=== PATIENT | male | born 1950 | race Caucasian/White ===

== ENCOUNTER 2025-05-11 19:03 | Observation (INO) | payer MEDICARE, SELFPAY ==
--- OUTSIDE RECORDS SUMMARY | 2010-03-30 11:46 | XMS_ITS | Continuity of Care Document ---
Author Organization [facility] Address [address] [address] [place] [address] Phone Care Team Providers Care Radioisotope Technologist Name Role Phone Jimbo Miller MD Unavailable Unavailable Medications Medication Instructions Dosage Effective Dates (start - stop) Status Comments MiralaxBisacodylMagCit Colon Prep 2 tabs bisacodyl each containing 5 mg of bisacodyl 1-8.3 oz bottle Miralax (238 gm) 64 oz Gatorade liquid (NOT red; NOT powdered)Regular Gatorade , Gatorade G2 , Powerade or PoweradeZero are acceptable. 1-10 oz bottle Mag Citrate (NOT red) - Active Advance Directives Directive Yes / No Effective Date File Name No Information Encounters Encounter Description Practice Location Reason(s) For Visit Diagnoses Date Provider Providers Copied on Encounter [facility], [address] [address], [place], [place], [id number], [place] tel:[phone] [facility] No Information 0 Paul Choi. [address] [facility] [address], [facility] [address], [place], [place], [id number] , [place]. tel:[phone] Family History Family Member Type Diagnosis Age At Onset No Information Payers Payer name Insurance type Covered democrat ID Authoriza tion(s) No Information Social History Type Description Quantity Date Captured Comments Sex Male Smoking Status No Information Chief Complaint And Reason For Visit No Information Reason For Referral Reason For Referral No Information History Of Present Illness Encounter Date Complaint History Of Prese nt Illness No Information Functional Status Date Functional Assessmen t No Information Instructions Date Instruction Additional Infor mation No Information Assessments Type Assessment Date No Information Patient Care Teams Name Effective Dates (start - stop) Status Members No Information
--- OUTSIDE RECORDS SUMMARY | 2010-03-30 11:46 | XMS_ITS | Continuity of Care Document ---
Author Organization [facility] Address [address] [address] [place] [address] Phone Care Team Providers Care Energy Conservation Director Name Role Phone Jimbo Miller MD Unavailable [...] Diagnoses Date Provider Providers Copied on Encounter [facility], [address] [address], [place], [place], [id number], [place] tel:[phone] [facility] No Information 0 Paul Choi. [address] [facility], [facility] [address], [place], [place], [id number] , [place]. tel:[phone] Family History Family Member Type Diagnosis Age At Onset No Information Payers Payer name Insurance type Covered republican ID Authoriza tion(s) No Information Social History [...]
--- OUTSIDE RECORDS SUMMARY | 2010-03-30 11:46 | XMS_ITS | Continuity of Care Document ---
Author Organization [facility] Address [address] [address] [place] [address] Phone Care Team Providers Care Orientor Name Role Phone Jimbo Miller MD Unavailable [...] Diagnoses Date Provider Providers Copied on Encounter [facility], [address] [address], [place], [place], [id number], [place] tel:[phone] [facility] No Information 0 Paul Choi. [address], [facility] [address], [place], [place], [id number] , [place]. tel:[phone] Family History Family Member Type Diagnosis Age At Onset No Information Payers Payer name Insurance type Covered constitution party ID Authoriza tion(s) No Information Social History [...]
[2025-05-11] VITALS (7 sets, daily range): BP systolic 175–219; BP diastolic 106–114; PULSE 57–67; RESP 12–22; TEMP 36.6; O2SAT 94–96; BMI 26.3
--- OUTSIDE RECORDS SUMMARY | 2025-05-11 19:07 | XMS_ITS | Clinical Summary ---
Author Organization [employer] [facility] [employer] Address [address] [place] [address] Care Team Providers Care Cured Meats Supervisor Name Role Phone Pcp, No Primary Care Provider Unavailabl e Allergies No known active allergies Medications No known medications Active Problems No known active problems Social History Tobacco Use Types Packs/Day Years Used Date Smoking Tobacco: Former Cigarettes Smokeless Tobacco: Never Tobacco Cessation:Counseling Given: Not Answered Social Connections Answer Date Recorded Frequency of Communication with Friends and Fami ly Not on file 04/12/2023 Sex and Gender Information Value Date Recorded Sex Assigned at Not on file Legal Sex Male 6:26 AM [employer]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 Gender Identity Not on file Sexual Orientation Not on file Obstetrics History Plan of Treatment Health Maintenance Due Date Last Done Comments Tetanus booster 1962 Depression screening for age 12+ 1963 BMI (ht and wt on same day) for age 18+ 1969 Hepatitis C screening for age 18-79 1969 Colonoscopy through age 75 1996 Lipids for age 45-75 1996 Pneumococcal series for age 50+ (1 of 1 - PCV) 2001 Zoster (shingles) series for age 50+ (1 of 2) 2001 Medicare Wellness for age 65+ 2016 COVID-19 vaccine series ( - 2024- season) 2025 06/16/2023, 06/06/2022, 09/21/2021, Additional history exists Influenza Vaccine (#1) 2025 RSV vaccine for adults or (1 - 1-dose 75+ series) 2026 Hepatitis B series for 19+ Aged Out N o longer eligible based on patient's age to complete this topic Insurance [facility] MEDICARE ADVANTAGE MR Care Teams Cured Meats Supervisor Relationship Specialty Start Date End Date Pcp, Breann . PCP - General 04/29/24
--- OUTSIDE RECORDS SUMMARY | 2025-05-11 19:07 | XMS_ITS | Clinical Summary ---
Author Organization [employer] Address [address], [place] [address] Care Team Providers Care Instructional Paraprofessional Name Role Phone Zack Paez MD Primary Care Provider [phone] Source Comments You are receiving this document as you are listed as the primary care provider,follow-up provider, or the patient has been referred to you for consultation.This is in compliance with the Medicare and[facility] EHR Incentive Program,which states Providers who transition their patient to another setting of careor provider of care or refers their patient to another provider of care shouldprovide summary care record for each transition of care or referral. [employer] Allergies No known active allergies Medications fluticasone (FLONASE) 50 MCG/ACT nasal solution Place 2 Sprays into both nostrils daily. decrease to 1 spray per nostril daily if symptoms controlled 16 g 3 8 Active Additional Information Patient not taking.Reported on 01/14/2020 aspirin 81 MG chewable tabletIndication s:Essential hypertension (HRC) Take 1 Tab by mouth daily. 72 Tab 3 8 Active Additional Information Patient not taking.Reported on 01/10/2020 fluorouracil (EFUDEX) 5 % cream Apply a thin layer to affected skin on neck and face twice a day for 1 week. 40 g 0 Active Additional Information Patient not taking.Reported on 01/10/2020 Calcipotriene (AKA DOVONEX) 0.005 % ointment Apply a thin layer to affected skin on neck and face twice a day for 1 week. 60 g 0 Active Additional Information Patient not taking.Reported on 01/10/2020 naproxen (NAPROSYN) 500 MG tabletIndication s:Muscle aches TAKE 1 TABLET BY MOUTH TWICE DAILY WITH MEALS 30 Tablet 0 Active lisinopril (ZESTRIL) 40 MG tabletIndication s:Essential hypertension (HRC) TAKE 1 TABLET BY MOUTH DAILY 90 Tablet 3 0 Active amLODIPine (NORVASC) 5 MG tabletIndication s:Essential hypertension (HRC) TAKE 1 TABLET BY MOUTH DAILY 90 Tablet 3 0 Active Active Problems Problem Noted Date Diagnosed Date White coat syndrome with hypertension 11/06/2017 HTN (hypertension) 03/02/2010 Overweight 03/02/2010 Seborrheic dermatitis 03/02/2010 Immunizations Immunization Administration Dates Next Due HepA-HepB ([place], 18+ yrs) 03/19/2010 IPV (Polio) 03/19/2010 MCV4 (Menactra) 03/19/2010 PCV13 (Prevnar) 10/30/2017 Tdap 03/19/2010 Typhoid (Typhim Vi, IM) 03/19/2010 Varicella 03/19/2010(Deferred: Immune by Nathaniel monroe) YF (Yellow Fever) 03/19/2010 Family History Medical History Relation Name Comments Cancer, Other Father Leukemia age 7 2 Cataract Father Diabetes, Type II Father Hypertension Father Anxiety Mother Coronary Artery Disease Mother Schizophrenia Mother Diabetes, Type II Paternal Grandfather Diabetes, Type II Paternal Grandmother Relation Name Status Comments Father (Age 72) Mother Brother Maternal Grandfather Maternal Grandmother Paternal Grandfather Paternal Grandmother Sister 1 Sister 2 Son Alive Social History Tobacco Use Types Packs/Day Years Used Date Smoking Tobacco: Former Cigarettes 1 6 Smokeless Tobacco: Never Comments:hasn't smokes since age 23 Alcohol Use Standard Drinks/Week Comments No 0 (1 standard drink = 0.6 oz pur e alcohol) PHQ-2 Answer Date Recorded PHQ-2 Score 0 12/29/2018 Sex and Gender Information Value Date Recorded Sex Assigned at Not on file Legal Sex Male 5:53 AM CDT Gender Identity Not on file Sexual Orientation Not on file Occupation Industry Job Start Date Job End Date retired Not on file Not on file Not on file Last Filed Vital Signs Vital Sign Reading Time Taken Comments Blood Pressure 180/107 01/14/2020 8:16 AM CDT Pulse 67 01/14/2020 8:16 AM CDT Temperature 36.3 C (97.4 F) 03/02/2010 1:47 PM CDT Respiratory Rate 12 01/23/2018 2:30 PM CDT Oxygen Saturation 94% 01/23/2018 2:30 PM CDT Inhaled Oxygen Concentration - - Weight 97.5 kg (215 lb) 09/25/2018 10:23 AM METAL FABRICATOR HELPER Height 180 cm (5' 10.87) 09/25/2018 10:23 AM CS T Body Mass Index 30.1 09/25/2018 10:23 AM METAL FABRICATOR HELPER Plan of Treatment Health Maintenance Due Date Last Done Comments Medicare Annual Wellness Visit 1950 Zoster/Shingles Vaccine (1 of 2) 2001 HepA Vaccine (2 of 3 - Hep A Twinrix risk 3-dose series) 04/16/2010 03/19/2010 HepB Vaccine (2) 04/16/2010 03/19/2010 Pneumococcal Vaccine 50+ Yrs (2 of 2 - PCV20 or PCV21) 10/30/2018 10/30/2017 DTaP/Tdap/Td Vaccine (2 - Tdap) 03/19/2020 03/19/2010 Cholesterol 01/12/2025 01/13/2020, 10/05, 10/26/2017, Additional history exists COVID-19 Vaccine (2 - 2024- season) 2025 11/10/2020 Influenza Vaccine (#1) 2025 RSV Vaccine (1 - 1-dose 75+ series) 2026 Colonoscopy 01/24/2028 01/23/2018 IPV (Polio) Vaccine Aged Out 03/19/2010 No longe r eligible based on patient's age to complete this topic MCV4 Vaccine Aged Out 03/19/2010 No longer eligi ble based on patient's age to complete this topic Hep C Screening (Preventive Services) Completed 10/26/2017 Abdominal Aortic Aneurysm (AAA) Screening Discontinued 10/18/2018 Hib Vaccine Aged Out No longer eligi ble based on patient's age to complete this topic Meningococcal B Vaccine Aged Out No l onger eligible based on patient's age to complete this topic Procedures Procedure Name Priority Date/Time Associated Diagnosis Comments LIPID PANEL & DIRECT LDL (IF NEEDED) Routine 01/13/2020 8:59 AM CDT Hyperlipidemia, unspecified hyperlipidemia type US ABD AAA SCREENING Routine 10/18/2018 8:18 AM METAL FABRICATOR HELPER Screening for AAA (abdominal aortic aneurysm) COLONOSCOPY Routine 01/23/2018 1:45 PM CDT Screen for colon cancer HEPATITIS C ANTIBODY, WITH REFLEX (ANTI-HCV) Routine 10/26/2017 8:54 AM METAL FABRICATOR HELPER Need for hepatitis C screening test from Last 3 Months or Most Recently Relevant to Health Maintenance Results * (ABNORMAL) Lipid Panel and Direct LDL(If Needed) (01/13/2020 8:59 AM CDT) Cholesterol 172 0 - 199 mg/dL 01/13/2020 3:22 PM CDT [facility] Triglyceride 71 <=149 mg/dL 01/13/2020 3:22 PM CDT [facility] HDL Cholesterol 39(L) >=40 mg/dL 01/13/2020 3:22 PM CDT [facility] LDL, Calculated 119 <130 mg/dL 01/13/2020 3:22 PM CDT [facility] Non HDL Chol, Calculated 133 mg/dL 01/13/2020 3:22 PM CDT [facility] Cholesterol/HDL Ratio 4.4 01/13/2020 3:22 PM CDT [facility] Hours Fasting 12 01/13/2020 3:22 PM CDT [facility] Blood Venipuncture / Unknown 01/13/2020 8:59 AM CDT 01/13/2020 8:59 AM CDT Zack Paez MD LAB_1 Final Result [facility] [address] [address], [facility] [phone] [facility] [address] [place] [address] [place] [phone] * US Abd AAA Screening (10/18/2018 8:18 AM METAL FABRICATOR HELPER) Anatomical Region Laterality Modality Abdomen Ultrasound 10/18/2018 8:18 AM METAL FABRICATOR HELPER Narrative 10/18/2018 8:21 AM METAL FABRICATOR HELPER [facility] ABD AAA SCREENING 10/18/2018 8:18 AM INDICATION: Abdominal aortic aneurysm screening with a history of smoking. TECHNIQUE: Ultrasound using hair-scale, two-dimensional images. FINDINGS: There is mild atheromatous plaque in the abdominal aorta. MEASUREMENTS: Abdominal Aorta: Proximal: 2.6 x 2.6 cm Mid: 1.9 x 2.1 cm Distal: 1.7 x 1.5 cm Right Common Iliac Artery: 1.2 x 1.0 cm Left Common Iliac Artery: 1.1 x 1.3 cm The right kidney measures 11.8 cm. The left kidney measures 12.0 cm. Superior left renal cyst measuring 3.4 x 2.5 x 2.9 cm. CONCLUSION: 1. Normal caliber abdominal aorta. Procedure Note Johnnie Sexton MD - 10/18/2018 [facility] ABD AAA SCREENING 10/18/2018 8:18 AM INDICATION: Abdominal aortic aneurysm screening with a history ofsmoking. TECHNIQUE: Ultrasound using hair-scale, two-dimensional images. FINDINGS: There is mild atheromatous plaque in the abdominal aorta. MEASUREMENTS: Abdominal Aorta: Proximal: 2.6 x 2.6 cm Mid: 1.9 x 2.1 cm Distal: 1.7 x 1.5 cm Right Common Iliac Artery: 1.2 x 1.0 cm Left Common Iliac Artery: 1.1 x 1.3 cm The right kidney measures 11.8 cm. The left kidney measures 12.0 cm.Superior left renal cyst measuring 3.4 x 2.5 x 2.9 cm. CONCLUSION: 1. Normal caliber abdominal aorta. Zack Paez MD [facility] US Final Result * COLONOSCOPY [[id number]] (01/23/2018 1:45 PM CDT) 01/23/2018 1:45 PM CDT Narrative [facility]) - 01/23/2018 2:12 PM CDT Instrument Name: 185 Indications: Screening for colorectal malignant neoplasm Providers: Jordan Villafana MD, Shiv Neal RN, Julissa Shannon LPN Referring MD: Shakeel Romero Medicines: Midazolam 2 mg IV, Fentanyl 75 micrograms IV, Diphenhydramine 50 mg IV Complications: No immediate complications. Procedure: Pre-Anesthesia Assessment: - Prior to the procedure, a History and Physical was performed, and patient medications and allergies were reviewed. The patient is competent. The risks and benefits of the procedure and the sedation options and risks were discussed with the patient. All questions were answered and informed consent was obtained. Patient identification and proposed procedure were verified by the physician in the pre-procedure area. Mental Status Examination: alert and oriented. Airway Examination: normal oropharyngeal airway and neck mobility. Respiratory Examination: clear to auscultation. CV Examination: normal. Prophylactic Antibiotics: The patient does not require prophylactic antibiotics. Prior Anticoagulants: The patient has taken no previous anticoagulant or antiplatelet agents. ASA Grade Assessment: II - A patient with mild systemic disease. After reviewing the risks and benefits, the patient was deemed in satisfactory condition to undergo the procedure. The anesthesia plan was to use moderate sedation / analgesia (conscious sedation). Immediately prior to administration of medications, the patient was re-assessed for adequacy to receive sedatives. The heart rate, respiratory rate, oxygen saturations, blood pressure, adequacy of pulmonary ventilation, and response to care were monitored throughout the procedure. The physical status of the patient was re-assessed after the procedure. After I obtained informed consent, the scope was passed under direct vision. Prior to sedation, patient identity and procedure was reverified. Throughout the procedure, the patient's blood pressure, pulse, and oxygen saturations were monitored continuously. The PCF-H190L was introduced through the anus and advanced to the cecum, identified by appendiceal orifice and ileocecal valve. The colonoscopy was performed without difficulty. The patient tolerated the procedure well. The quality of the bowel preparation was fair. Findings: The perianal and digital rectal examinations were normal. Multiple small and large-mouthed diverticula were found in the sigmoid colon. The exam was otherwise without abnormality on direct and retroflexion views. Moderate Sedation: Moderate (conscious) sedation was administered by the endoscopy nurse and supervised by the endoscopist. The following parameters were monitored: oxygen saturation, heart rate, blood pressure, and response to care. Total physician intraservice time was 17 minutes. Impression: - Preparation of the colon was fair. - Diverticulosis in the sigmoid colon. - The examination was otherwise normal on direct and retroflexion views. - No specimens collected. Recommendation: - Discharge patient to home. - High fiber diet indefinitely. - Continue present medications. - Repeat colonoscopy in 10 years for screening purposes. - Return to referring physician as previously scheduled. Procedure Code(s): --- Professional --- 28340, Colonoscopy, flexible; diagnostic, including collection of specimen(s) by brushing or washing, when performed (separate procedure) G0500, Moderate sedation services provided by the same physician or other qualified health health care manager performing a gastrointestinal endoscopic service that sedation supports, requiring the presence of an independent trained observer to assist in the monitoring of the patient's level of consciousness and physiological status; initial 15 minutes of intra-service time; patient age 5 years or older (additional time may be reported with 83166, as appropriate) Diagnosis Code(s): --- Professional --- Z12.11, Encounter for screening for malignant neoplasm of colon K57.30, Diverticulosis of large intestine without perforation or abscess without bleeding CPT copyright 2016 [employer]. All rights reserved. The codes documented in this report are preliminary and upon desktop support manager review may be revised to meet current compliance requirements. Attending Participation: Jordan Villafana MD 01/23/2018 2:12:19 PM This report has been signed electronically. Number of Addenda: 0 Note Initiated On: 01/23/2018 1:45 PM Procedure Note Jordan Villafana MD - 01/23/2018 Instrument Name: 185 Indications: Screening for colorectal malignant neoplasm Providers: Jordan Villafana MD, Shiv Neal RN, Julissa Shannon LPN Referring MD: Shakeel Romero Medicines: Midazolam 2 mg IV, Fentanyl 75 micrograms IV, Diphenhydramine 50 mg IV Complications: No immediate complications. Procedure: Pre-Anesthesia Assessment: - Prior to the procedure, a History and Physical was performed, and patient medications and allergies were reviewed. The patient is competent. The risks and benefits of the procedure and the sedation options and risks were discussed with the patient. All questions were answered and informed consent was obtained. Patient identification and proposed procedure were verified by the physician in the pre-procedure area. Mental Status Examination: alert and oriented. Airway Examination: normal oropharyngeal airway and neck mobility. Respiratory Examination: clear to auscultation. CV Examination: normal. Prophylactic Antibiotics: The patient does not require prophylactic antibiotics. Prior Anticoagulants: The patient has taken no previous anticoagulant or antiplatelet agents. ASA Grade Assessment: II - A patient with mild systemic disease. After reviewing the risks and benefits, the patient was deemed in satisfactory condition to undergo the procedure. The anesthesia plan was to use moderate sedation / analgesia (conscious sedation). Immediately prior to administration of medications, the patient was re-assessed for adequacy to receive sedatives. The heart rate, respiratory rate, oxygen saturations, blood pressure, adequacy of pulmonary ventilation, and response to care were monitored throughout the procedure. The physical status of the patient was re-assessed after the procedure. After I obtained informed consent, the scope was passed under direct vision. Prior to sedation, patient identity and procedure was reverified. Throughout the procedure, the patient's blood pressure, pulse, and oxygen saturations were monitored continuously. The PCF-H190L was introduced through the anus and advanced to the cecum, identified by appendiceal orifice and ileocecal valve. The colonoscopy was performed without difficulty. The patient tolerated the procedure well. The quality of the bowel preparation was fair. Findings: The perianal and digital rectal examinations were normal. Multiple small and large-mouthed diverticula were found in the sigmoid colon. The exam was otherwise without abnormality on direct and retroflexion views. Moderate Sedation: Moderate (conscious) sedation was administered by the endoscopy nurse and supervised by the endoscopist. The following parameters were monitored: oxygen saturation, heart rate, blood pressure, and response to care. Total physician intraservice time was 17 minutes. Impression: - Preparation of the colon was fair. - Diverticulosis in the sigmoid colon. - The examination was otherwise normal on direct and retroflexion views. - No specimens collected. Recommendation: - Discharge patient to home. - High fiber diet indefinitely. - Continue present medications. - Repeat colonoscopy in 10 years for screening purposes. - Return to referring physician as previously scheduled. Procedure Code(s): --- Professional --- 69133, Colonoscopy, flexible; diagnostic, including collection of specimen(s) by brushing or washing, when performed (separate procedure) G0500, Moderate sedation services provided by the same physician or other qualified health health care manager performing a gastrointestinal endoscopic service that sedation supports, requiring the presence of an independent trained observer to assist in the monitoring of the patient's level of consciousness and physiological status; initial 15 minutes of intra-service time; patient age 5 years or older (additional time may be reported with 60663, as appropriate) Diagnosis Code(s): --- Professional --- Z12.11, Encounter for screening for malignant neoplasm of colon K57.30, Diverticulosis of large intestine without perforation or abscess without bleeding CPT copyright 2016 [employer]. All rights reserved. The codes documented in this report are preliminary and upon desktop support manager review may be revised to meet current compliance requirements. Attending Participation: Jordan Villafana MD 01/23/2018 2:12:19 PM This report has been signed electronically. Number of Addenda: 0 Note Initiated On: 01/23/2018 1:45 PM us Jordan Villafana MD [facility] Final Result Performing Organization Address [facility] Co de Phone Number [facility]) [place], [place] * Hepatitis C Antibody, with Reflex (10/26/2017 8:54 AM METAL FABRICATOR HELPER) Anti-HCV Negative (Non Reactive) [facility] Comment: Antibodies to HCV not detected. Does not exclude the possibility of exposure to HCV. 10/26/2017 8:54 AM METAL FABRICATOR HELPER 10/26/2017 8:56 AM METAL FABRICATOR HELPER Narrative [facility] - 10/26/2017 3:50 PM METAL FABRICATOR HELPER Performed at [facility], [address] [place] [address] us Shakeel Romero MD LAB_1 Final Resu lt Performing Organization Address [facility] Co de Phone Number [facility] [employer] [phone] from Last 3 Months or Most Recently Relevant to Health Maintenance Insurance [facility] MEDICARE [facility] INSURED DENTAL Care Teams Instructional Paraprofessional Relationship Specialty [place] [address] [place] [address] PCP - General Family Practice 09/19/18
--- OUTSIDE RECORDS SUMMARY | 2025-05-11 19:07 | XMS_ITS | Encounter Summary ---
Author Organization [facility] Address [address], [place] [address] Care Team Providers Care Stone Carver Name Role Phone Zack Paez MD Primary Care Provider [phone] Encounter Details Date Type Department Care Team (Late st Contact Info) Description 01/23/2018 Consent for Procedure/Treatment [facility] Social History Tobacco Use Types Packs/Day Years Used Date Smoking Tobacco: Former Cigarettes 1 6 Smokeless Tobacco: Never Comments:hasn't smokes since age 23 Alcohol Use Standard Drinks/Week Comments No 0 (1 standard drink = 0.6 oz pur e alcohol) Sex and Gender Information Value Date Recorded Sex Assigned at Not on file Legal Sex Male 5:53 AM CDT Gender Identity Not on file Sexual Orientation Not on file Occupation Industry Job Start Date Job End Date retired Not on file Not on file Not on file documented as of this encounter Plan of Treatment Not on file documented as of this encounter Visit Diagnoses Not on filedocumented in this encounter Care Teams Stone Carver Relationship Specialty [place] [address] [place] [address] PCP - General Family Practice 09/19/18 documented as of this encounter
--- OUTSIDE RECORDS SUMMARY | 2025-05-11 19:07 | XMS_ITS | Encounter Summary ---
Author Organization [facility] Address [address], [place] [address] Care Team Providers Care Fish Cutting Machine Operator Name Role Phone Zack Paez MD Primary Care Provider Encounter Details Date Type Department Care Team (Late st Contact Info) Description 01/23/2018 Consent for Procedure/Treatme nt [facility] INFORMED CONSENT RECORD Social History Tobacco Use Types Packs/Day Years [...] on filedocumented in this encounter Care Teams Fish Cutting Machine Operator Relationship Specialty [place] [address] [place] [address] PCP - General Family Practice 09/19/18 documented as of this encounter
--- OUTSIDE RECORDS SUMMARY | 2025-05-11 19:07 | XMS_ITS | Encounter Summary ---
Author Organization [facility] Address [address], [place] [address] Care Team Providers Care Automotive Leasing Sales Representative Name Role Phone Zack Paez MD Primary Care Provider [phone] Encounter Details Date Type Department Care Team (Latest Contact Info) Description 11/05/2019 Consent for Procedure/Treatme [facility] [address] [facility] [address] [facility] [place] [address] Jemma Oakley MD [address] [place] [address] [phone] INFORMED CONSENT FOR SKIN BIOPSY OR EXCISION Social History Tobacco Use Types Packs/Day Years [...] on filedocumented in this encounter Care Teams Automotive Leasing Sales Representative Relationship Specialty [place] [address] [place], [place] [phone] PCP - General Family Practice 09/19/18 documented as of this encounter
--- NOTE | 2025-05-11 21:11 | ED.GENADULT ---
[facility] - General Adult General Date Seen: 05/11/25 Chief complaint: Weakness Stated complaint: high blood pressure, cant walk Time Seen by Provider: 05/11/25 21:10 History of Present Illness [facility] narrative: 75-year-old male. He has a past medical history of hypertension. He has not seen his doctor in his few years and has been working hard to manage his high blood pressure with control of his diet. He says he measures his blood pressure sometimes at home and typically runs in the 150s but sometimes gets his lows the 130s. He is not on any long-term blood pressure medications. He does not have any other long-term health problems. He does have a distant history of a slip and fall that caused a fairly significant intracranial hemorrhage. Is not able to describe the exact hemorrhage but it sounds like it affected his frontal lobe and possibly his corpus callosum. He never had surgery for it. He has does note some recent memory loss which she attributes to his brain injury. He has been healthy and well lately. He works as a builder. He has been vigorously building a house for himself and his this summer. He was pretty active last winter and did a lot of exercise and swimming. He has been in his usual state of health lately. No recent illnesses. No cough. No shortness of breath. No chest pain. No palpitations. No headaches. No neck pain. No numbness or weakness in his arms or legs. Not had trouble walking recently. No back pain. No falls or injuries. does note that the patient had an episode a few months ago where he was talking on the phone with his son and abruptly cut off mid sentence and then could not talk. He apparently went to bed and then when he woke up the morning his speech was back to normal. He does not have any other neurologic symptoms. Late this afternoon around 4:00 p.m., before dinner he suddenly began to feel wobbly and unsteady and imbalance and like both his legs were weak. He said he was barely able to walk. He was able to walk, with his 's assistance to get to the couch. He says both of his legs were wobbly. His arms were not wobbly. He does not really say that they were weak or numb, just that they we were not balancing or moving properly. He was not able to walk. His had to call 2 neighbors to help assist him to get into the car and bring him here. He was still wobbly and did a wheelchair to get into the ER. However since he has been here the wobbliness is not resolved he is back to normal. He is able to get up and walk at the bedside with me. He did not have any headache. No blurry vision. No diplopia. No nausea vomiting. No chest pain. No palpitations. No pain in his back. No pain in his legs. No abdominal pain he. He did not faint. He did measures blood pressure and it is elevated. Blood pressure was 219/106 at triage. This is higher than his normal baseline readings Related Data Home Medications ?Medication ?Instructions ?Recorded ?Confirmed multivitamin (Daily Multi-Vitamin 1 tab PO DAILY 05/11/25 05/11/25 tablet) Allergies Allergy/AdvReac Type Severity Reaction Status Date / Time No Known Drug Allergies Allergy Verified 05/11/25 21:31 [facility] Social History Smoking Status: Former smoker What tobacco products do you use: cigarettes Years smoked: 25 Smoking quit date/years: <= 15 years ago Do you use any of these nicotine containing products: None Second hand tobacco smoke exposure: No How often do you have a drink containing alcohol: never AUDIT-C Alcohol total score: 0 Non-prescribed substance use: denies use service: No Exam Narrative: Exam Narrative: Constitutional: Appears well-developed and well-nourished. Alert. Conversant. Non toxic. HENT: Head: Atraumatic. Nose: Nose normal. Mouth/Throat: Oral mucosa is clear and moist. no trismus. Pharynx normal. Tonsils symmetric. No tonsillar enlargement, erythema, or exudate. Eyes: Conjunctivae normal. EOM normal. Pupils equal, round, and reactive to light. No scleral icterus. Neck: Normal range of motion. Neck supple. No tracheal deviation present. No JVD Cardiovascular: Normal rate, regular rhythm. No gallop. No friction rub. No murmur heard. Symmetric radial and PT artery pulses Pulmonary/Chest: Effort normal. No stridor. No respiratory distress. No wheezes. No rales. No rhonchi . No tenderness. Abdominal: Soft. Bowel sounds normal. No distension. No mass. No tenderness. No rebound. No guarding. Musculoskeletal: RUE: Normal range of motion. No tenderness. No deformity LUE: Normal range of motion. No tenderness. No deformity RLE: Normal range of motion. No edema. No tenderness. No deformity LLE: Normal range of motion. No edema. No tenderness. No deformity Neurological: Mental status normal. Attention normal. Alert and oriented x3. GCS 15. Memory normal. Speech fluent. Cognition normal. Cranial Nerves intact II-XII except I did not formally test gag or visual acuity. EOMI. Palate elevates symmetrically and tongue protrudes in the midline. Strength: 5/5 trapezius on the right and left 5/5 deltoid on the right and left 5/5 biceps on the right and left 5/5 triceps on the right and left 5/5 consulting sales executive on the right and left 5/5 thumb opposition on the right and left 5/5 finger abduction on the right and left 5/5 hip flexors (L3) on the right and left 5/5 quadriceps (L4) on the right and left 5/5 tibialis anterior on the right and left 5/5 EHL (L5) on the right and left 5/5 gastrocnemius (S1) on the right and left 5/5 hamstring on the right and left Sensation intact to light touch in both upper extremities (C4-T1) Sensation intact to light touch in Both lower extremities (L4-S1). Finger to nose and coordination normal. Gait normal. He says his wobbliness is now gone. Skin: Skin is warm and dry. No rash noted. No pallor. Normal capillary refill. Psychiatric: Normal mood. Normal affect. Bit of a poor historian and can forget details of what happened today but gives fairly extensive detail about his old injuries. Suspect some mild dementia. Const: Vital Signs, click to edit/add: Vital Signs - 24 hr 05/11/25 20:12 05/11/25 21:48 05/11/25 22:00 Temperature 97.8 F Pulse Rate 63 63 Pulse Rate [Right Pulse Oximeter] 59 L Respiratory Rate 16 16 22 Blood Pressure Blood Pressure [Le ft Upper Arm] 219/106 H Pulse Oximetry 96 96 95 Oxygen Delivery Me thod Room Air 05/11/25 22:30 05/11/25 22:47 05/11/25 22:47 Temperature Pulse Rate 66 67 Pulse Rate [Right Pulse Oximeter] 62 Respiratory Rate 14 12 Blood Pressure 175/114 H Blood Pressure [Le ft Upper Arm] 175/114 H Pulse Oximetry 95 94 Oxygen Delivery Me thod 05/11/25 23:00 05/11/25 23:30 05/12/25 00:00 Temperature Pulse Rate 66 57 L 57 L Pulse Rate [Right Pulse Oximeter] Respiratory Rate 12 12 Blood Pressure Blood Pressure [Le ft Upper Arm] Pulse Oximetry 95 96 93 Oxygen Delivery Me thod 05/12/25 00:14 05/12/25 00:24 05/12/25 00:30 Temperature Pulse Rate 60 60 59 L Pulse Rate [Right Pulse Oximeter] Respiratory Rate 14 Blood Pressure 199/123 H Blood Pressure [Le ft Upper Arm] Pulse Oximetry 97 97 96 Oxygen Delivery Me thod 05/12/25 00:32 05/12/25 01:00 05/12/25 01:01 Temperature Pulse Rate 61 56 L 57 L Pulse Rate [Right Pulse Oximeter] Respiratory Rate 12 13 Blood Pressure 191/117 H 181/115 H Blood Pressure [Le ft Upper Arm] Pulse Oximetry 96 96 95 Oxygen Delivery Me thod Course Course ED Course: Recheck-blood pressure down to 175/114. Patient feeling fine in bed. No symptoms. CT and CTA came back. CT shows subacute infarcts in the left ruggiero radiata and in the caudate nucleus. CTA shows multifocal mild to moderate intracranial atherosclerotic disease, worse in the posterior fossa. Discussed with the stroke neurologist, Dr. Jeffery. She recommends admission, MRI in the morning, stroke workup with cardiac monitoring, lipid profile, echo, etc.. She recommends dual anti-platelet therapy with aspirin 325 now and then 81 mg daily thereafter. Plavix load with 300 mg Plavix now. Plavix 75 mg daily starting tomorrow Reevaluation(s) Reevaluation #1: Discussed with overnight hospitalist, Dr. Wen. He graciously accepts for admission. Patient agrees with plan for admission. Vital Signs Vital signs: Initial Vital Signs Temperature 97.8 F 05/11/25 20:12 Temperature Source Temporal Artery Scan 05/11/25 20:12 Pulse Rate 59 L 05/11/25 20:12 Respiratory Rate 16 05/11/25 20:12 Blood Pressure 219/106 H 05/11/25 20:12 Blood Pressure Mean 143 H 05/11/25 20:12 Blood Pressure Position Sitting 05/11/25 20:12 Pulse Oximetry 96 05/11/25 20:12 Oxygen Delivery Method Room Air 05/11/25 20:12 Vital Signs Temperature 97.8 F 05/11/25 20:12 Pulse Rate 59 L 05/11/25 20:12 Respiratory Rate 16 05/11/25 20:12 Blood Pressure 219/106 H 05/11/25 20:12 Pulse Oximetry 96 05/11/25 20:12 Oxygen Delivery Method Room Air 05/11/25 20:12 Temperature 97.8 F 05/11/25 20:12 Pulse Rate 57 L 05/12/25 01:01 Respiratory Rate 13 05/12/25 01:01 Blood Pressure 181/115 H 05/12/25 01:01 Pulse Oximetry 95 05/12/25 01:01 Oxygen Delivery Method Room Air 05/11/25 20:12 Medications Administered Medications: Discontinued Medications Generic Name Dose Route Start Last Admin Trade Name Freq PRN Reason Stop Dose Admin Aspirin 325 mg 05/12/25 01:30 05/12/25 01:30 Aspirin Ec 325 Mg Tablet PO 05/12/25 01:31 325 mg ONCE ONE Administration Clopidogrel Bisulfate 300 mg 05/12/25 00:16 05/12/25 01:30 Clopidogrel 300 Mg Tablet PO 05/12/25 00:17 300 mg ONCE ONE Administration Sodium Chloride 1,000 mls @ 1,000 mls/hr 05/12/25 00:30 05/12/25 01:28 0.9 % Sodium Chloride 1000 Ml IV 05/12/25 01:29 1,000 mls/hr .Q1H LATASHA Administration Medical Decision Making [facility] Narrative Medical decision making narrative: 75-year-old gentleman with a past medical history of previous traumatic intracranial hemorrhage (above more than 20 years ago) and history of hypertension which she has been managing without medication for the past few years. He presents to the ER today from home with assistance of his family for difficulty walking and ?wobbly legs. ?. It does not sound like he actually had bilateral leg weakness but more just difficulty controlling his legs. Concern here is for potential acute infarct or cerebellar stroke or hemorrhage. Fortunately, by the time I examined him he has gait was steady and back to normal. He did not have any other focal neurologic deficits. Initial vital signs show marked hypertension with a blood pressure of 219/106, which came down to 175/114 without antihypertensive treatment. Laboratory workup shows normal kidney function. Nonischemic EKG. Negative troponin. CT imaging shows signs of suspected subacute to chronic left frontal ruggiero radiata or cauda and caudate infarcts. MRI is recommended. CT angiogram shows atherosclerotic changes in the posterior circulation but no definite large vessel occlusion. Consider other causes of weakness. He is not having any cough or shortness of breath. COVID is negative. Alcohol is undetectable. Urinalysis normal. Blood sugar normal. Electrolytes normal. Lab Data Labs: Lab Results 05/11/25 05/11/25 05/11/25 Range/Units 21:56 22:36 23:08 WBC 6.20 (4.50-11.00) K/uL RBC 4.21 L (4.30-5.90) m/uL Hgb 13.9 (13.5-17.5) gm/dL Hct 41.8 (37.0-53.0) % MCV 99 (80-100) fL MCH 33 (26-34) pg MCHC 33 (32-36) gm/dL RDW Coeff of Zach 12.0 (11.5-15.5) % Plt Count 211 (140-440) K/uL Neut % (Auto) 62.8 (42.0-72.0) % Lymph % (Auto) 25.6 (20-44) % Yancey % (Auto) 8.9 (0.0-11.0) % Eos % (Auto) 1.9 (0.0-7.0) % Baso % (Auto) 0.6 (0.0-3.0) % Neut # (Auto) 3.89 (1.7-7.0) K/uL Lymph # (Auto) 1.59 (0.90-2.90) K/uL Yancey # (Auto) 0.60 (0.00-0.90) K/UL Eos # (Auto) 0.12 (0.00-0.50) K/uL Baso # (Auto) 0.04 (0.00-0.30) K/uL Abs Immat Gran (auto) 0.01 (0.00-0.30) K/uL Imm/Tot Granulo (auto) 0.2 % INR 1.01 (0.91-1.10) Sodium 138 (135-149) mmol/L Potassium 3.9 (3.6-5.1) mmol/L Chloride 103 (96-114) mmol/L Carbon Dioxide 29 (20-32) mmol/L Anion Gap 6 L (7-15) mEq/L BUN 24 (7-30) mg/dL Creatinine 1.0 (0.5-1.5) mg/dL Estimated Creat Clear 71.13 Estimated GFR 79 ml/min Glucose 101 (60-115) mg/dL Lactate 0.9 (0.5-1.9) mmol/L Calcium 8.8 (8.4-10.6) mg/dL Troponin I < 0.01 (0.01-0.04) ng/mL Urine Color Yellow (Yellow) Urine Appearance Clear (Clear) Urine pH 7.0 (5.0-8.5) Ur Specific [place] 1.015 (1.000-1.030) Urine Protein Negative (Negative) Urine Glucose (UA) Negative (Negative) Urine Ketones 1+ A (Negative) Urine Blood Negative (Negative) Urine Nitrite Negative (Negative) Urine Bilirubin Negative (Negative) Urine Urobilinogen 0.2 (0.2-1.0) Ur Leukocyte Esterase Negative (Negative) Urine RBC 0-2 (0-2) Urine WBC 0-2 (0-5) Ur Squamous Epith Cells None (None-Few) Urine Bacteria None (None) Ethyl Alcohol < 0.01 (0.01-0.03) % SARS-CoV-2 (PCR) Negative SARS-CoV-2 (Negative) Influenza Type A (PCR) Negative PCR FLU A (Negative) Influenza Type B (PCR) Negative PCR FLU B (Negative) Imaging Data CTA head and neck: Attestation: I have reviewed the pertinent imaging results. Radiologist's impression: CT angiogram of the head and neck following 95 mL Isovue 370 IV contrast. Multiplanar MIP images obtained. Comparison: MRA head performed 04/26/2016 Findings: Preliminary report, full report to follow. Impression: CTA head: No acute abnormality is suspected. Multiple areas of giev-kg-rrefiryl narrowing of intracranial arterial branches greatest in the posterior circulation are favored to be atherosclerotic in nature with no large vessel occlusion appreciated. CTA neck: No acute abnormality appreciated. CT scan - head: Attestation: I have reviewed the pertinent imaging results. Radiologist's impression: Findings: Brain: Age-indeterminate though suspected subacute to chronic left frontal ruggiero radiata and caudate infarcts. Ventricles: No acute abnormality appreciated. Orbits, sinuses, mastoids: No acute abnormality appreciated. Mild sinus disease. Calvarium and soft tissues: No acute abnormality appreciated. Impression: Age-indeterminate though suspected subacute to chronic left frontal ruggiero radiata and caudate infarcts. MRI recommended for further evaluation. No other acute abnormality appreciated. ECG Data Attestation: I personally reviewed and interpreted this ECG as follows: Interpretation: Normal sinus rhythm Rate 62 NV interval 182 Normal QRS axis. Voltage criteria for left ventricular hypertrophy. No ST segment elevation or depression. QTC 414, QTC 420
--- NOTE | 2025-05-11 21:45 | CT_ITS ---
Patient: HOLLAND HUBER Facility:?[facility] Patient ID:?[id number] Site Patient ID:?[id number]. Site :?[id number] Study:?CT-Head Angio CTA HEAD W/ISOVUE 370 95CC-05/11/2025 11:33:02 PM Ordering Physician:Rafa Leach Final Report: DATE: 05/11/2025 CLINICAL HISTORY: Patient with ataxia. TECHNIQUE: Standard helical CT image acquisition through the head and neck was performed after intravenous contrast bolus enhancement. 2D and 3D MIP images for post- processing were performed and interpreted on an independent workstation and 3D images were permanently archived. COMPARISON: CT same day FINDINGS: The origins of the great vessels from the aortic arch are patent. The origin of the right vertebral artery is patent. The origin of the left vertebral artery is patent. The common carotid arteries are patent There is no stenosis at the origin of the right internal carotid artery. There is no stenosis at the origin of the left internal carotid artery. The rest of the cervical segments of the internal carotid arteries are patent up to their intracranial segments. The intracranial segments of the internal carotid arteries are patent. The left vertebral artery is dominant. The cervical segments of the vertebral arteries are patent. The intracranial segments of the vertebral arteries are patent. The middle cerebral arteries are normal without aneurysm or proximal occlusion identified. The anterior cerebral arteries are normal without aneurysm or proximal occlusion identified. The anterior communicating artery is well visualized and appears normal. The basilar artery is normal without aneurysm or occlusion. The posterior cerebral arteries demonstrate mild intracranial atherosclerosis. There is normal opacification of major intracranial venous structures. The visualized lung apices are unremarkable The thyroid gland is unremarkable. The soft tissues of the neck are unremarkable. There are degenerative changes in the cervical spine. IMPRESSION: Mild intracranial atherosclerosis in the posterior cerebral arteries bilaterally. Patent rest of the cervical and proximal intracranial vasculature. Please note that all CT scans at this facility use dose modulation, iterative reconstruction, and/or weight-based dosing when appropriate to reduce radiation dose to as low as reasonably achievable. Dictated by Kenzie Valentine MD @ 05/12/2025 7:50:23 AM Signed by:?Kenzie Valentine MD @05/12/2025 7:50:23 AM (Electronic Signature)
--- NOTE | 2025-05-11 21:45 | CT_ITS ---
Patient: HOLLAND HUBER Facility:?[facility] Patient ID:?[id number] Site Patient ID:?[id number]. Site :?[id number] Study:?CT-Neck Angio CTA NECK W/ISOVUE 370 95CC-05/11/2025 11:34:18 PM Ordering Physician:Rafa Leach Final Report: DATE: 05/11/2025 CLINICAL HISTORY: Patient with ataxia. TECHNIQUE: Standard helical CT image acquisition through the head and neck was performed after intravenous contrast bolus enhancement. 2D and 3D MIP images for post- processing were performed and interpreted on an independent workstation and 3D images were permanently archived. COMPARISON: CT same day FINDINGS: The origins of the great vessels from the aortic arch are patent. The origin of the right vertebral artery is patent. The origin of the left vertebral artery is patent. The common carotid arteries are patent There is no stenosis at the origin of the right internal carotid artery. There is no stenosis at the origin of the left internal carotid artery. The rest of the cervical segments of the internal carotid arteries are patent up to their intracranial segments. The intracranial segments of the internal carotid arteries are patent. The left vertebral artery is dominant. The cervical segments of the vertebral arteries are patent. The intracranial segments of the vertebral arteries are patent. The middle cerebral arteries are normal without aneurysm or proximal occlusion identified. The anterior cerebral arteries are normal without aneurysm or proximal occlusion identified. The anterior communicating artery is well visualized and appears normal. The basilar artery is normal without aneurysm or occlusion. The posterior cerebral arteries demonstrate mild intracranial atherosclerosis. There is normal opacification of major intracranial venous structures. The visualized lung apices are unremarkable The thyroid gland is unremarkable. The soft tissues of the neck are unremarkable. There are degenerative changes in the cervical spine. IMPRESSION: Mild intracranial atherosclerosis in the posterior cerebral arteries bilaterally. Patent rest of the cervical and proximal intracranial vasculature. Please note that all CT scans at this facility use dose modulation, iterative reconstruction, and/or weight-based dosing when appropriate to reduce radiation dose to as low as reasonably achievable. Dictated by Kenzie Valentine MD @ 05/12/2025 7:51:20 AM Signed by:?Kenzie Valentine MD @05/12/2025 7:51:20 AM (Electronic Signature)
--- NOTE | 2025-05-11 21:46 | CRLHL7_ITS ---
For Patients: As a result of the Century Cures Act, medical imaging exams and procedure reports are released immediately into your electronic medical record. You may view this report before your referring provider. If you have questions, please contact your health care provider. Indication: Transient ataxia, hypertension, history of TBI, suspect TIA Technique: Noncontrast CT through the head with multiplanar reformats Comparison: MR head performed 12/26/2015 Findings: Brain: Age-indeterminate though suspected subacute to chronic left frontal ruggiero radiata and caudate infarcts. Ventricles: No acute abnormality appreciated. Orbits, sinuses, mastoids: No acute abnormality appreciated. Mild sinus disease. Calvarium and soft tissues: No acute abnormality appreciated. Impression: Age-indeterminate though suspected subacute to chronic left frontal ruggiero radiata and caudate infarcts. MRI recommended for further evaluation. No other acute abnormality appreciated. Please note that all CT scans at this facility use dose modulation, iterative reconstruction, and/or weight-based dosing when appropriate to reduce radiation dose to as low as reasonably achievable. Dictated by Lai Willard MD @ 05/12/2025 12:02:40 AM (Electronically Signed)
[2025-05-11 22:08] LABS: Lactate* 0.9 mmol/L (0.5-1.9)
[2025-05-11 22:12] LABS: Hematocrit* 41.8 % (37.0-53.0); Hemoglobin* 13.9 gm/dL (13.5-17.5); Immature Granulocytes Abs Auto 0.01 K/uL (0.00-0.30); Immature Granulocytes Pct Auto 0.2 %; Lymphocytes Absolute Auto 1.59 K/uL (0.90-2.90); Mean Corpuscular HGB Conc 33 gm/dL (32-36); Mean Corpuscular Hemoglobin 33 pg (26-34); Mean Corpuscular Volume 99 fL (80-100); RDW Coefficient of Variation % 12.0 % (11.5-15.5); Red Blood Count* 4.21 m/uL (4.30-5.90); White Blood Count* 6.20 K/uL (4.50-11.00)
[2025-05-11 22:24] LABS: Slide Review Reflex No
[2025-05-11 22:33] LABS: INR 1.01 (0.91-1.10); Prothrombin Time 14.1 Seconds
[2025-05-11 22:52] LABS: Chloride* 103 mmol/L (96-114); Potassium* 3.9 mmol/L (3.6-5.1); Sodium* 138 mmol/L (135-149)
[2025-05-11 22:55] LABS: Anion Gap 6 mEq/L (7-15); Blood Urea Nitrogen* 24 mg/dL (7-30); Calcium* 8.8 mg/dL (8.4-10.6); Carbon Dioxide* 29 mmol/L (20-32); Creatinine* 1.0 mg/dL (0.5-1.5); Est. Creatinine Clearance* 71.13; Estimated Glomerular Filt Rate 79 ml/min; Glucose* 101 mg/dL (60-115)
[2025-05-11 23:02] LABS: Ethanol* < 0.01 % (0.01-0.03)
[2025-05-11 23:15] LABS: Appearance Urine Clear (Clear)
[2025-05-11 23:15] LABS: PCR FLU A Negative PCR FLU A (Negative); PCR FLU B Negative PCR FLU B (Negative); SARS PCR* Negative SARS-CoV-2 (Negative)
[2025-05-12] VITALS (13 sets, daily range): BP systolic 174–207; BP diastolic 109–125; PULSE 56–67; RESP 12–18; TEMP 35.9–36.3; O2SAT 93–98
[2025-05-12] MEDS: CLOPIDOGREL 300 MG TABLET PO (01:30)
[2025-05-12] MEDS: ASPIRIN EC 325 MG TABLET PO (01:30)
--- NOTE | 2025-05-12 02:34 | W.PM.TELEH&P ---
Telehealth- H&P: HPI History of Present Illness Date Seen: 05/12/25 Chief complaint: blood pressure problem, cant walk Narrative: Emigdio Espinosa is seen as an Interactive Telehealth visit. Emigdio Espinosa is a 75 year old male who presented with difficulty with balance. The patient is a 75-year-old man with a past medical history notable for hypertension and obesity, he does not follow-up with physicians frequently. He is tried to manage his hypertension with diet and exercise and has avoided medications because he had some orthostatic symptoms when he was initiated on medications. He does not take any antihypertensives currently. He does not follow with a physician regularly. About a month ago he apparently had some word finding difficulties 1 evening, he did not seek medical care, went to bed and was back to baseline. Although over the past week he says he has had some very mild issues with word finding. He has not had any slurred speech. During the day of admission around 4 PM he developed issues with balance, he felt like his legs were uncoordinated. He did not have a headache. He did not have any aphasia or dysarthria. He did not have any tinnitus, vertigo or lightheadedness. He just felt like his legs would not do what he wanted but they were not really weak. Denies any fevers or chills. Denies any other new concerns. In the ER he underwent a CT of the head which showed some subacute strokes with no evidence of bleed. The case was reviewed with neurology who recommended dual antiplatelet for 21 days and evaluation for Stroke risk factors. Review of Systems Status of ROS: Reports: 10 or more systems reviewed and unremarkable except as noted in History and below [facility] Medical History (Updated 05/12/25 @ 02:40 by Maulik Wen MD) Hypertension ?I10 - Essential (primary) hypertension (ICD-10) Social History (Updated 05/12/25 @ 01:52 by Hany Sharma MD) Smoking Status: Former smoker What tobacco products do you use: cigarettes Years smoked: 25 Smoking quit date/years: <= 15 years ago Do you use any of these nicotine containing products: None Second hand tobacco smoke exposure: No How often do you have a drink containing alcohol: never AUDIT-C Alcohol total score: 0 Non-prescribed substance use: denies use service: No Meds Home Medications and Allergies Home Medications ?Medication ?Instructions ?Recorded ?Confirmed ?Type multivitamin (Daily Multi-Vitamin 1 tab PO DAILY 05/11/25 05/11/25 History tablet) Allergies Allergy/AdvReac Type Severity Reaction Status Date / Time No Known Drug Allergies Allergy Verified 05/11/25 21:31 Exam Narrative Exam Narrative: GENERAL: vital signs reviewed, well developed and nourished, in no distress HEENT: pupils are equal and round, extraocular movements are grossly within normal limits and oral mucosa is moist. NECK: Supple without lymphadenopathy or thyromegaly according to nursing staff examination observation HEART: Regular rate and rhythm without any rubs, or gallops 1/6 systolic murmur. LUNGS: Clear to auscultation bilaterally with good air movement throughout ABDOMEN: Observation from nurse assisted exam, abdomen appears soft, nontender, and nondistended with Positive bowel sounds noted. EXTREMITIES: Strength and sensation is observed to be grossly within normal limits in the upper and lower extremities. No focal strength deficit is observed SKIN: Observed warm and dry with color normal NEURO: Alert, awake and oriented. Answers all questions appropriately. No focal neuro deficits are noted. Speech is fluent. PSYCH: Affect normal Const Vital Signs, click to edit/add: Vital Signs - 24 hr 05/11/25 20:12 05/11/25 21:48 05/11/25 22:00 Temperature 97.8 F Pulse Rate 63 63 Pulse Rate [Right Pulse Oximeter] 59 L Respiratory Rate 16 16 22 Blood Pressure Blood Pressure [Left Upper Arm] 219/106 H Blood Pressure [Right Arm] Pulse Oximetry 96 96 95 Oxygen Delivery Method Room Air 05/11/25 22:30 05/11/25 22:47 05/11/25 22:47 Temperature Pulse Rate 66 67 Pulse Rate [Right Pulse Oximeter] 62 Respiratory Rate 14 12 Blood Pressure 175/114 H Blood Pressure [Left Upper Arm] 175/114 H Blood Pressure [Right Arm] Pulse Oximetry 95 94 Oxygen Delivery Method 05/11/25 23:00 05/11/25 23:30 05/12/25 00:00 Temperature Pulse Rate 66 57 L 57 L Pulse Rate [Right Pulse Oximeter] Respiratory Rate 12 12 Blood Pressure Blood Pressure [Left Upper Arm] Blood Pressure [Right Arm] Pulse Oximetry 95 96 93 Oxygen Delivery Method 05/12/25 00:14 05/12/25 00:24 05/12/25 00:30 Temperature Pulse Rate 60 60 59 L Pulse Rate [Right Pulse Oximeter] Respiratory Rate 14 Blood Pressure 199/123 H Blood Pressure [Left Upper Arm] Blood Pressure [Right Arm] Pulse Oximetry 97 97 96 Oxygen Delivery Method 05/12/25 00:32 05/12/25 01:00 05/12/25 01:01 Temperature Pulse Rate 61 56 L 57 L Pulse Rate [Right Pulse Oximeter] Respiratory Rate 12 13 Blood Pressure 191/117 H 181/115 H Blood Pressure [Left Upper Arm] Blood Pressure [Right Arm] Pulse Oximetry 96 96 95 Oxygen Delivery Method 05/12/25 02:05 Temperature 96.7 F L Pulse Rate Pulse Rate [Right Pulse Oximeter] 64 Respiratory Rate 18 Blood Pressure Blood Pressure [Left Upper Arm] Blood Pressure [Right Arm] 207/125 H Pulse Oximetry 95 Oxygen Delivery Method Room Air Hospitalist - H&P: Result Labs Labs: Short CBC 05/11/25 Range/Units 21:56 WBC 6.20 (4.50-11.00) K/uL Hgb 13.9 (13.5-17.5) gm/dL Hct 41.8 (37.0-53.0) % Plt Count 211 (140-440) K/uL BMP 05/11/25 21:56 Sodium 138 Potassium 3.9 Chloride 103 Carbon Dioxide 29 BUN 24 Creatinine 1.0 Glucose 101 Calcium 8.8 Cardiac Enzymes 05/11/25 Range/Units 21:56 Troponin I < 0.01 (0.01-0.04) ng/mL Urine 05/11/25 Range/Units 23:08 Urine Color Yellow (Yellow) Urine Appearance Clear (Clear) Urine pH 7.0 (5.0-8.5) Ur Specific [place] 1.015 (1.000-1.030) Urine Protein Negative (Negative) Urine Glucose (UA) Negative (Negative) Assessment and Plan Assessment and plan (1) Hypertension: Status: Acute (2) Brain TIA: Status: Acute Plan Assessment and Plan Suspected TIA Back to baseline neurologically but had difficulty with balance CT of the head as well as CTA head and neck were obtained CTA did not show any large vessel occlusion or significant stenosis although official read is pending CT of the head personally reviewed: No acute bleed 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 left caudate infarcts Monitor on telemetry to look for atrial fibrillation, outpatient abbott or [facility] Obtain echocardiogram MRI ER discussed the case with neurology who recommended 325 mg of aspirin now as well as 300 mg of Plavix with aspirin 81 mg and 75 mg of Plavix for 21 days Outpatient evaluation for suspected sleep apnea Encouraged healthy diet and exercise Check A1c and lipid panel Speech, OT and PT evaluation DVT prophylaxis Hypertension Permissive hypertension Labetaolol PRNfor SBP >220 or DBP >120 Prior to admission home medications that were felt to be needed immediately have been ordered. The remainder of the home medications will await pharmacy reconciliation and will be ordered by the attending provider in the a.m. Telehealth Visit: Today's History and Physical is provided via interactive telehealth by Dr. Maulik Wen MD. Patient is located at [place], [place]. Provider is located at [facility]. Nursing staff assisted with the patient's exam. The visit being done today meets criteria for a telehealth visit and the patient or patients parent/guardian is aware the visit is a telehealth visit. Camera Start Time: 211 Camera End Time:222 Medical Complexity: High ~~~~~~~~~~~~~~~~ Dr. Maulik Wen Telehealth: Statement Statement Telehealth Visit: Today's History and Physical is provided via interactive telehealth by Maulik Wen MD.? Patient is located at [facility].? Provider is located at [facility].? Nursing staff assisted with the patient's exam. The visit being done today meets criteria for a telehealth visit and the patient or patient?s parent/guardian is aware the visit is a telehealth visit. Camera Start Time: 02:11 Camera End Time: 02:22
[2025-05-12] MEDS: LABETALOL HCL 5 MG/ML inj IVP (03:29)
--- NOTE | 2025-05-12 06:42 | PC.NURSE ---
The patient arrived to the floor from the emergency department late in the night. The original complaint was of inability to walk but this was resolved before admission. They have been able to walk safely stand by assist. Not quite of stability where full independence would be safe while in the hospital. Alert and oriented. Speech has been altered. The patient takes a while to start speaking and he reports saying the words he thinks of as difficult to get out. No alterations in sensation. Vitally stable. Awaiting an MRI today and then likely discharge.
[2025-05-12 06:48] LABS: Cholesterol* 190 mg/dL (90-199)
[2025-05-12 06:49] LABS: HDL Cholesterol* 45 mg/dL (>=40); Triglycerides* 49 mg/dL (40-149)
--- NOTE | 2025-05-12 07:40 | CRLHL7_ITS ---
For Patients: As a result of the Century Cures Act, medical imaging exams and procedure reports are released immediately into your electronic medical record. You may view this report before your referring provider. If you have questions, please contact your health care provider. Indication: Stroke Technique: Multiplanar, multisequence MRI of the brain obtained without contrast. Comparison: CT head and CTA head/neck 05/11/2025, MRI brain and MRA head/neck 04/26/2016 Findings: Small area of mildly restricted diffusion at the right inferior parietal lobe. Small area of maturing encephalomalacia/gliosis with minimal restricted diffusion at the left posterior basal temporal lobe. Small area of maturing encephalomalacia/gliosis, intrinsic T1 shortening and minimal restricted diffusion at the left anterior basal ganglia. Tiny chronic lacunar infarcts scattered throughout the centrum semiovale/ruggiero radiata, bilateral basal ganglia and midbrain, as well as right posterior cerebellum. Scattered foci of FLAIR hyperintensity throughout the cerebral white matter, typical of chronic microangiopathy. Thin T2/FLAIR hyperintensity along both cerebral convexities measuring 2 mm maximum thickness, hyperintense on SWI and intermediate on T1, suggestive of trace subdural fluid collections versus pachymeningeal thickening. Convex superior margin of the pituitary gland, in contradistinction to the concave superior margin/partially empty sella configuration seen on 04/26/2016 MRI. The cerebellar tonsils also appear slightly lower positioned within the posterior fossa near foramen magnum, compared to the 2016 exam. The dominant left transverse sinus appears slightly distended compared to previous on the sagittal T1. Preserved major intracranial arterial flow voids. Unremarkable bone marrow signal. Hyperostosis frontalis interna. Lobulated mucosal thickening throughout the inferior maxillary sinuses, [id number], minor mucosal thickening throughout the anterior ethmoid air cells. No mastoid effusion. Bilateral lens implants. Impression: 1. Small subacute right inferior parietal lobe infarct. Small late subacute infarcts at the left anterior basal ganglia and left posterior basal temporal lobe. 2. Constellation of findings suspicious for intracranial hypotension, including thin bilateral cerebral convexity subdural fluid collections versus pachymeningeal thickening, enlargement of the pituitary gland, mild distention of the left transverse sinus, and slightly lower lying cerebellar tonsils relative to the 04/26/2016 MRI. 3. Mild-moderate chronic microangiopathy changes and scattered chronic lacunar infarcts as detailed. Dictated by Angela Maldonado MD @ 05/12/2025 9:01:58 AM (Electronically Signed)
--- NOTE | 2025-05-12 10:24 | P.DS_ITS ---
DS: Providers Provider Date Seen: 05/12/25 Date of admission: 05/12/25 01:33 Primary care physician: Not a Local Provider Admitting Clinician: Maulik Wen MD Consults: 05/12/25 02:30 Consult to Physical Therapy [CONS] Routine Comment: Reason(s) for PT Consult:: Balance Assessment Any Restrictions?:: No Restrictions Consult to Speech Therapy [CONS] Routine Comment: Reason(s) for Speech Consult:: Speech/Swallowing Eval Comment: word finding occasional swallow probs 05/12/25 02:32 Consult to Occupational Therapy [CONS] Routine Comment: Reason(s) for OT Consult:: Evaluate and Treat Any Restrictions?:: No Restrictions Attending Physician on discharge: SLIME Currie, [facility] Date of Discharge: 05/12/25 DS: Diagnosis Discharge Diagnosis (1) Ischemic stroke: Status: Acute Problem details: -MRI 05/12/2025 shows right parietal + left basal ganglia/temporal lobe -suspected embolic stroke. Risk factors include intracranial atherosclerosis, hyperlipidemia, hypertension (unmanaged several years) -awaiting echocardiogram -tele stroke/Neurology consulted recommending Plavix 75 mg daily x 90 days + aspirin 81 mg daily indefinitely, rosuvastatin 20 mg q.h.s., Zio patch at discharge -PT/OT consults -[employer] consult recommending outpatient speech therapy for acute on chronic worsening of word-finding. 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 Follow-up in the clinic for ongoing blood pressure and medication management (4) Hyperlipidemia: Status: Acute Problem details: -history of, previously untreated -start rosuvastatin 20 mg q.h.s. (5) TBI (traumatic brain injury): Status: Acute Problem details: -history of, > 20 years ago, sequelae word-finding difficulties -[employer] consult recommending outpatient speech therapy for acutely worsened word- finding following ischemic stroke. Referral form signed DS: Summary Hospital Course Hospital Course: Course of care and details as noted above. Admitted overnight for observation with cardiac monitoring. Symptoms at onset have completely resolved. No acute twister doffer findings. PT OT consulted - no acute needs following discharge. [employer] recommending outpatient speech therapy for acutely worsened word-finding difficulties (previous history of following TBI). Recommendations as above. Restarted lisinopril. Discharged with Zio patch. Final read of echocardiogram pending at time of discharge, to review with PCP. Will establish with local PCP at [facility] for ongoing cares. Status at Discharge Functional status at discharge: independent ambulation Overall status at discharge: patient is back to baseline Time Spent with Patient Time attestation: Total time spent providing and/or coordinating discharge services: Time spent: Greater than 30 minutes Exam Narrative: Exam Narrative: PHYSICAL EXAM General: Pleasant, conversant, NAD Cardiovascular: RRR Pulmonary: No dyspnea Neurological: Alert, answering questions appropriately, no acute focal findings Skin: Warm, dry. Const: Vital Signs, click to edit/add: Vital Signs - 24 hr 05/11/25 20:12 05/11/25 21:48 05/11/25 22:00 Temperature 97.8 F Pulse Rate 63 63 Pulse Rate [Right Pulse Oximeter] 59 L Respiratory Rate 16 16 22 Blood Pressure Blood Pressure [Le ft Upper Arm] 219/106 H Blood Pressure [Ri ght Arm] Pulse Oximetry 96 96 95 Oxygen Delivery Me thod Room Air 05/11/25 22:30 05/11/25 22:47 05/11/25 22:47 Temperature Pulse Rate 66 67 Pulse Rate [Right Pulse Oximeter] 62 Respiratory Rate 14 12 Blood Pressure 175/114 H Blood Pressure [Le ft Upper Arm] 175/114 H Blood Pressure [Ri ght Arm] Pulse Oximetry 95 94 Oxygen Delivery Me thod 05/11/25 23:00 05/11/25 23:30 05/12/25 00:00 Temperature Pulse Rate 66 57 L 57 L Pulse Rate [Right Pulse Oximeter] Respiratory Rate 12 12 Blood Pressure Blood Pressure [Le ft Upper Arm] Blood Pressure [Ri ght Arm] Pulse Oximetry 95 96 93 Oxygen Delivery Me thod 05/12/25 00:14 05/12/25 00:24 05/12/25 00:30 Temperature Pulse Rate 60 60 59 L Pulse Rate [Right Pulse Oximeter] Respiratory Rate 14 Blood Pressure 199/123 H Blood Pressure [Le ft Upper Arm] Blood Pressure [Ri ght Arm] Pulse Oximetry 97 97 96 Oxygen Delivery Me thod 05/12/25 00:32 05/12/25 01:00 05/12/25 01:01 Temperature Pulse Rate 61 56 L 57 L Pulse Rate [Right Pulse Oximeter] Respiratory Rate 12 13 Blood Pressure 191/117 H 181/115 H Blood Pressure [Le ft Upper Arm] Blood Pressure [Ri ght Arm] Pulse Oximetry 96 96 95 Oxygen Delivery Me thod 05/12/25 02:05 05/12/25 02:05 05/12/25 02:29 Temperature 96.7 F L Pulse Rate 63 Pulse Rate [Right Pulse Oximeter] 64 Respiratory Rate 18 15 Blood Pressure Blood Pressure [Le ft Upper Arm] Blood Pressure [Ri ght Arm] 207/125 H Pulse Oximetry 95 [facility] 05/12/25 02:29 05/12/25 07:00 05/12/25 07:39 Temperature 97.4 F L Pulse Rate 62 Pulse Rate [Right Pulse Oximeter] 63 Respiratory Rate 18 Blood Pressure Blood Pressure [Le ft Upper Arm] Blood Pressure [Ri ght Arm] 174/109 H Pulse Oximetry 96 97 Oxygen Delivery Me thod Room Air DS: Data Data Completed and Pending Labs on day of discharge: Labs from last 24 hours 05/12/25 05/11/25 05/11/25 06:07 23:08 22:36 WBC RBC Hgb Hct MCV MCH MCHC RDW Coeff of Zach Plt Count Neut % (Auto) Lymph % (Auto) Creek % (Auto) Eos % (Auto) Baso % (Auto) Neut # (Auto) Lymph # (Auto) Creek # (Auto) Eos # (Auto) Baso # (Auto) Abs Immat Gran (auto) Imm/Tot Granulo (auto) INR Sodium Potassium Chloride Carbon Dioxide Anion Gap BUN Creatinine Estimated Creat Clear Estimated GFR Glucose Hemoglobin A1c 5.1 Lactate Calcium Troponin I Triglycerides 49 Cholesterol 190 LDL Cholesterol, Calc 136 H HDL Cholesterol 45 Urine Color Yellow Urine Appearance Clear Urine pH 7.0 Ur Specific [place] 1.015 Urine Protein Negative Urine Glucose (UA) Negative Urine Ketones 1+ A Urine Blood Negative Urine Nitrite Negative Urine Bilirubin Negative Urine Urobilinogen 0.2 Ur Leukocyte Esterase Negative Urine RBC 0-2 Urine WBC 0-2 Ur Squamous Epith Cells None Urine Bacteria None Ethyl Alcohol SARS-CoV-2 (PCR) Negative SARS-CoV-2 Influenza Type A (PCR) Negative PCR FLU A Influenza Type B (PCR) Negative PCR FLU B 05/11/25 21:56 WBC 6.20 RBC 4.21 L Hgb 13.9 Hct 41.8 MCV 99 MCH 33 MCHC 33 RDW Coeff of Zach 12.0 Plt Count 211 Neut % (Auto) 62.8 Lymph % (Auto) 25.6 Creek % (Auto) 8.9 Eos % (Auto) 1.9 Baso % (Auto) 0.6 Neut # (Auto) 3.89 Lymph # (Auto) 1.59 Creek # (Auto) 0.60 Eos # (Auto) 0.12 Baso # (Auto) 0.04 Abs Immat Gran (auto) 0.01 Imm/Tot Granulo (auto) 0.2 INR 1.01 Sodium 138 Potassium 3.9 Chloride 103 Carbon Dioxide 29 Anion Gap 6 L BUN 24 Creatinine 1.0 Estimated Creat Clear 71.13 Estimated GFR 79 Glucose 101 Hemoglobin A1c Lactate 0.9 Calcium 8.8 Troponin I < 0.01 Triglycerides Cholesterol LDL Cholesterol, Calc HDL Cholesterol Urine Color Urine Appearance Urine pH Ur Specific [place] Urine Protein Urine Glucose (UA) Urine Ketones Urine Blood Urine Nitrite Urine Bilirubin Urine Urobilinogen Ur Leukocyte Esterase Urine RBC Urine WBC Ur Squamous Epith Cells Urine Bacteria Ethyl Alcohol < 0.01 SARS-CoV-2 (PCR) Influenza Type A (PCR) Influenza Type B (PCR) Imaging MR Brain: Attestation: I have reviewed the pertinent imaging results. Radiologist's impression: Small area of mildly restricted diffusion at the right inferior parietal lobe. Small area of maturing encephalomalacia/gliosis with minimal restricted diffusion at the left posterior basal temporal lobe. Small area of maturing encephalomalacia/gliosis, intrinsic T1 shortening and minimal restricted diffusion at the left anterior basal ganglia. Tiny chronic lacunar infarcts scattered throughout the centrum semiovale/ruggiero radiata, bilateral basal ganglia and midbrain, as well as right posterior cerebellum. Scattered foci of FLAIR hyperintensity throughout the cerebral white matter, typical of chronic microangiopathy. Thin T2/FLAIR hyperintensity along both cerebral convexities measuring 2 mm maximum thickness, hyperintense on SWI and intermediate on T1, suggestive of trace subdural fluid collections versus pachymeningeal thickening. Convex superior margin of the pituitary gland, in contradistinction to the concave superior margin/partially empty sella configuration seen on 04/26/2016 MRI. The cerebellar tonsils also appear slightly lower positioned within the posterior fossa near foramen magnum, compared to the 2016 exam. The dominant left transverse sinus appears slightly distended compared to previous on the sagittal T1. Preserved major intracranial arterial flow voids. Unremarkable bone marrow signal. Hyperostosis frontalis interna. Lobulated mucosal thickening throughout the inferior maxillary sinuses, [id number], minor mucosal thickening throughout the anterior ethmoid air cells. No mastoid effusion. Bilateral lens implants. Impression: 1. Small subacute right inferior parietal lobe infarct. Small late subacute infarcts at the left anterior basal ganglia and left posterior basal temporal lobe. 2. Constellation of findings suspicious for intracranial hypotension, including thin bilateral cerebral convexity subdural fluid collections versus pachymeningeal thickening, enlargement of the pituitary gland, mild distention of the left transverse sinus, and slightly lower lying cerebellar tonsils relative to the 04/26/2016 MRI. 3. Mild-moderate chronic microangiopathy changes and scattered chronic lacunar infarcts as detailed. Dictated by Angela Maldonado MD @ 05/12/2025 9:01:58 AM ----- ADDENDUM ----- Exam report was faxed, with confirmation of receipt by Dr. Brad Santos at 9:09 a.m. on 05/12/2025. Dictated by Angela Maldonado MD @ May 12 2025 9:13AM (Electronically Signed) For Patients: As a result of the Century Cures Act, medical imaging exams and procedure reports are released immediately into your electronic medical record. You may view this report before your referring provider. If you have questions, please contact your health care provider. Indication: Stroke Technique: Multiplanar, multisequence MRI of the brain obtained without contrast. Comparison: CT head and CTA head/neck 05/11/2025, MRI brain and MRA head/neck 04/26/2016 Findings: Small area of mildly restricted diffusion at the right inferior parietal lobe. Small area of maturing encephalomalacia/gliosis with minimal restricted diffusion at the left posterior basal temporal lobe. Small area of maturing encephalomalacia/gliosis, intrinsic T1 shortening and minimal restricted diffusion at the left anterior basal ganglia. Tiny chronic lacunar infarcts scattered throughout the centrum semiovale/ruggiero radiata, bilateral basal ganglia and midbrain, as well as right posterior cerebellum. Scattered foci of FLAIR hyperintensity throughout the cerebral white matter, typical of chronic microangiopathy. Thin T2/FLAIR hyperintensity along both cerebral convexities measuring 2 mm maximum thickness, hyperintense on SWI and intermediate on T1, suggestive of trace subdural fluid collections versus pachymeningeal thickening. Convex superior margin of the pituitary gland, in contradistinction to the concave superior margin/partially empty sella configuration seen on 04/26/2016 MRI. The cerebellar tonsils also appear slightly lower positioned within the posterior fossa near foramen magnum, compared to the 2016 exam. The dominant left transverse sinus appears slightly distended compared to previous on the sagittal T1. Preserved major intracranial arterial flow voids. Unremarkable bone marrow signal. Hyperostosis frontalis interna. Lobulated mucosal thickening throughout the inferior maxillary sinuses, [id number]-left, minor mucosal thickening throughout the anterior ethmoid air cells. No mastoid effusion. Bilateral lens implants. Impression: 1. Small subacute right inferior parietal lobe infarct. Small late subacute infarcts at the left anterior basal ganglia and left posterior basal temporal lobe. 2. Constellation of findings suspicious for intracranial hypotension, including thin bilateral cerebral convexity subdural fluid collections versus pachymeningeal thickening, enlargement of the pituitary gland, mild distention of the left transverse sinus, and slightly lower lying cerebellar tonsils relative to the 04/26/2016 MRI. 3. Mild-moderate chronic microangiopathy changes and scattered chronic lacunar infarcts as detailed. CT scan - head: Attestation: I have reviewed the pertinent imaging results. Radiologist's impression: Brain: Age-indeterminate though suspected subacute to chronic left frontal ruggiero radiata and caudate infarcts. Ventricles: No acute abnormality appreciated. Orbits, sinuses, mastoids: No acute abnormality appreciated. Mild sinus disease. Calvarium and soft tissues: No acute abnormality appreciated. Impression: Age-indeterminate though suspected subacute to chronic left frontal ruggiero radiata and caudate infarcts. MRI recommended for further evaluation. No other acute abnormality appreciated. CTA head and neck: Attestation: I have reviewed the pertinent imaging results. Radiologist's impression: TECHNIQUE: Standard helical CT image acquisition through the head and neck was performed after intravenous contrast bolus enhancement. 2D and 3D MIP images for post- processing were performed and interpreted on an independent workstation and 3D images were permanently archived. COMPARISON: CT same day FINDINGS: The origins of the great vessels from the aortic arch are patent. The origin of the right vertebral artery is patent. The origin of the left vertebral artery is patent. The common carotid arteries are patent There is no stenosis at the origin of the right internal carotid artery. There is no stenosis at the origin of the left internal carotid artery. The rest of the cervical segments of the internal carotid arteries are patent up to their intracranial segments. The intracranial segments of the internal carotid arteries are patent. The left vertebral artery is dominant. The cervical segments of the vertebral arteries are patent. The intracranial segments of the vertebral arteries are patent. The middle cerebral arteries are normal without aneurysm or proximal occlusion identified. The anterior cerebral arteries are normal without aneurysm or proximal occlusion identified. The anterior communicating artery is well visualized and appears normal. The basilar artery is normal without aneurysm or occlusion. The posterior cerebral arteries demonstrate mild intracranial atherosclerosis. There is normal opacification of major intracranial venous structures. The visualized lung apices are unremarkable The thyroid gland is unremarkable. The soft tissues of the neck are unremarkable. There are degenerative changes in the cervical spine. IMPRESSION: Mild intracranial atherosclerosis in the posterior cerebral arteries bilaterally. Patent rest of the cervical and proximal intracranial vasculature. TECHNIQUE: Standard helical CT image acquisition through the head and neck was performed after intravenous contrast bolus enhancement. 2D and 3D MIP images for post- processing were performed and interpreted on an independent workstation and 3D images were permanently archived. COMPARISON: CT same day FINDINGS: The origins of the great vessels from the aortic arch are patent. The origin of the right vertebral artery is patent. The origin of the left vertebral artery is patent. The common carotid arteries are patent There is no stenosis at the origin of the right internal carotid artery. There is no stenosis at the origin of the left internal carotid artery. The rest of the cervical segments of the internal carotid arteries are patent up to their intracranial segments. The intracranial segments of the internal car otid arteries are patent. The left vertebral artery is dominant. The cervical segments of the vertebral arteries are patent. The intracranial segments of the vertebral arteries are patent. The middle cerebral arteries are normal without aneurysm or proximal occlusion identified. The anterior cerebral arteries are normal without aneurysm or proximal occlusion identified. The anterior communicating artery is well visualized and appears normal. The basilar artery is normal without aneurysm or occlusion. The posterior cerebral arteries demonstrate mild intracranial atherosclerosis. There is normal opacification of major intracranial venous structures. The visualized lung apices are unremarkable The thyroid gland is unremarkable. The soft tissues of the neck are unremarkable. There are degenerative changes in the cervical spine. IMPRESSION: Mild intracranial atherosclerosis in the posterior cerebral arteries bilaterally. Patent rest of the cervical and proximal intracranial vasculature. Discharge Plan Discharge Disposition: Home, Self-Care Date of Admission: 05/12/25 01:33 Attending Provider on Discharge: Anamaria Carranza Primary Care Provider: Provider,Not a Local Condition: Improved Anticipated Discharge Date/Time: 05/12/25 13:00 Discharge Medications: New rosuvastatin 20 mg tablet 20 mg PO DAILY Qty: 30 0RF clopidogrel [Plavix] 75 mg tablet 75 mg PO DAILY Qty: 90 0RF aspirin 81 mg tablet 81 mg PO DAILY Qty: 30 0RF lisinopril 10 mg Tablet 10 mg PO DAILY Qty: 30 0RF Continued multivitamin [Daily Multi-Vitamin] Tablet 1 tab PO DAILY Discharge Orders: Discharge Order (Routine); Ordered 05/12/25 Ordered By: Anamaria Carranza Patient Education: Aspirin (By mouth), Clopidogrel (By mouth), Rosuvastatin (By mouth), Ischemic Stroke (DC), Zio (Home Heart Monitor) Additional Instructions: A Ziopatch has been placed. Return this as instructed. You have 3 new medications to pharmacy picking technician and take as prescribed. You are also being restarted on your Lisinopril. Your PCP will follow your blood pressures and determine if this dose needs to be adjusted or another blood pressure medication needs to be added. Speech therapy has recommned outpatient speech therapy. Follow up in the clinic as scheduled for your post hospital visit. Activity Level: No Restrictions Discharge Diet: Heart Healthy (2 gm sodium, low fat) Follow Up Appointments: Provider,Not a Local [Primary Care Provider, Family Practice] Brian Li MD [Staff Physician, Internal Medicine] - 05/21/25 2:00 pm Referral Note: Post hospital follow up 5-7 days Forms: Patient Belongings, [facility] Info Instructions
[2025-05-12] MEDS: SODIUM CHLORIDE 0.9 % (FLUSH) 10 ML SYRINGE 5 ML IVF (11:12)
--- NOTE | 2025-05-12 11:19 | PC.SOCIAL ---
[employer] Assessment: SW met with patient who states that he has no concerns at this time. Patient reports that he has his for support and that they are doing well. 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 SW informed by provider and OT that OP services are set up. SW to assist if needs arise.
--- NOTE | 2025-05-12 14:55 | PC.NURSE ---
Patient was very pleasant and cooperative throughout shift. VSS. Zio patch applied, patient educated on Zio patch, stroke symptoms, medications. Ambulating independently. No pain reported. Patient discharged to at 14:45.
== END 2025-05-12 14:45 | disposition home or self-care (01) ==
LOC: ED 22:14 → MEDSURG 05-12 01:34
PROVIDERS: Admitting Provider Internal Medicine; Emergency Provider Emergency Medicine; Visit Provider Internal Medicine
DX: I63.9 Cerebral infarction, unspecified (principal); I10 Essential (primary) hypertension; E78.5 Hyperlipidemia, unspecified; Z87.820 Personal history of traumatic brain injury; Z13.1 Encounter for screening for diabetes mellitus; R47.9 Unspecified speech disturbances
CPT/HCPCS: 36415; 70450; 70496; 70498; 70551; 80048; 80061; 81001; 82077; 82962; 83036; 83605; 84484; 85025; 85610; 87631; 92523; 93005; 93246; 93306; 96360; 97161; 97165; 99215; 99284; 99285; A9270; G0378; J7030; Q9967

== ENCOUNTER 2025-07-02 08:14 | Outpatient (CLI) | payer MEDICARE, SELFPAY | END 2025-07-02 08:15 | disposition home or self-care (01) | PROVIDERS: PCP Internal Medicine; Visit Provider Internal Medicine | DX: I10 Essential (primary) hypertension (principal); E78.5 Hyperlipidemia, unspecified | CPT/HCPCS: 80053; 80061; G0103 ==